=== PATIENT | female | born 1950 | race Caucasian/White ===

== ENCOUNTER 2018-12-23 16:43 | Emergency (ER) | payer MEDICARE ==
[2018-12-23 16:53] VITALS: BP 137/73
--- NOTE | 2018-12-23 16:54 | UC ---
Skin Complaint HPI - HPI Summary HPI Summary: 68 yo female presents with bug bite to right lower holman. She tells me that about 4-5 days ago she was working in the garden and thinks she may have been bitten by a bug or spider to her right lower leg. Since that time the area has developed some mild redness and yellow crusting. She is concerned for infection. Denies fever. - History of Current Complaint Chief Complaint: UCSkin Time Seen by Provider: 12/23/18 16:53 Stated Complaint: INSECT BITE Hx Obtained From: Patient Onset/Duration: Sudden Onset Onset Severity: Mild Current Severity: Mild Pain Intensity: 3 Pain Scale Used: 0-10 Numeric - Allergy/Home Medications Allergies/Adverse Reactions: Allergies Allergy/AdvReac Type Severity Reaction Status Date / Time No Known Allergies Allergy Verified 12/23/18 16:52 PMH/Surg Hx/FS Hx/Imm Hx Endocrine History: Hypothyroidism, Dyslipidemia - Surgical History Surgical History: Yes Surgery Procedure, Year, and Place: 1979-EXPLORATORY LAPAROTOMY. - CUT AT WORK AND GOT BLOOD POISONING LEFT ARM. TONSILLECTOMY AT AGE 4. RIGHT HIP REPLACEMENT - Family History Known Family History: Positive: Unknown - Social History Lives: With Family Alcohol Use: Rare Substance Use Type: None Smoking Status (MU): Former Smoker When Did the Patient Quit Smoking/Using Tobacco: QUIT OVER 10 YEARS AGO - Immunization History Most Recent Influenza Vaccination: FALL 2014 Most Recent Tetanus Shot: UNKNOWN Most Recent Pneumonia Vaccination: NOVEMBER 2015 Review of Systems All Other Systems Reviewed And Are Negative: Yes Constitutional: Positive: Negative Skin: Positive: Other - Wound right lower leg Respiratory: Positive: Negative Cardiovascular: Positive: Negative Neurovascular: Positive: Negative Neurological: Positive: Negative Psychological: Positive: Negative Physical Exam - Summary Physical Exam Summary: GENERAL: NAD. WDWN. No pain distress. SKIN: RIGHT LOWER HOLMAN: Two 2mm diameter superficial puncture wounds with yellow crusting and mild surrounding erythema. NTTP. No abscess or fluctuance appreciated. No streaking, active drainage, warmth, or bleeding. CHEST: No accessory muscle use. Breathing comfortably and in no distress. CV: Pulses intact. Cap refill <2seconds NEURO: Alert. PSYCH: Age appropriate behavior. Triage Information Reviewed: Yes Vital Signs: Initial Vital Signs Temp 97.2 F 12/23/18 16:47 Pulse 73 06/13/19 16:47 Resp 16 12/23/18 16:47 BP 137/73 12/23/18 16:47 Pulse Ox 98 12/23/18 16:47 Vital Signs Reviewed: Yes Course/Dx - Course Course Of Treatment: Suspect superficial bug bite with mild wound infection. Appears to be healing well on it's own. Will rx for bactroban cream and have pt apply a band-aid daily . - Diagnoses Provider Diagnosis: Bug bite Discharge - Sign-Out/Discharge Documenting (check all that apply): Patient Departure All imaging exams completed and their final reports reviewed: No Studies - Discharge Plan Condition: Stable Disposition: HOME Prescriptions: Mupirocin 2% CREAM* [Bactroban 2% CREAM*] 1 applic TOPICAL BID #1 tube Patient Education Materials: Insect Bite or Sting (ED) Referrals: Phil Juarez MD [Primary Care Provider] - Additional Instructions: If you develop a fever, shortness of breath, chest pain, new or worsening symptoms - please call your PCP or go to the ED immediately. Use the antibiotic cream twice a day and change the band-aid daily for 5 days - Billing Disposition and Condition Condition: STABLE Disposition: Home
== END 2018-12-23 17:10 | disposition home or self-care (01) ==
LOC: UCEAST 16:43
DX: S80.861A Insect bite (nonvenomous), right lower leg, initial encounter (principal); W57.XXXA Bitten or stung by nonvenomous insect and other nonvenomous arthropods, initial encounter; Y93.H2 Activity, gardening and landscaping; Y92.017 Garden or yard in single-family (private) house as the place of occurrence of the external cause; Y99.8 Other external cause status; E03.9 Hypothyroidism, unspecified; E78.5 Hyperlipidemia, unspecified; Z87.891 Personal history of nicotine dependence
CPT/HCPCS: 99212; G0463

== ENCOUNTER 2019-06-20 15:18 | Emergency (ER) | payer MEDICARE ==
[2019-06-20 15:27] VITALS: BP 126/69
--- NOTE | 2019-06-20 15:48 | UC ---
Ear Complaint HPI - HPI Summary HPI Summary: 69-year-old female comes in with chief complaint of left ear pain. Pain started about one week ago after she was outside shoveling snow in the cold and the wind. No fevers or chills no runny nose. She did take some over-the- counter pain medicines which did help somewhat symptoms. Denies any dental or mouth pain. No rash. Pain has spread slightly posterior and inferior to the left ear also. - History of Current Complaint Chief Complaint: UCEar Stated Complaint: EAR PAIN Time Seen by Provider: 06/20/19 15:30 Pain Intensity: 6 - Allergies/Home Medications Allergies/Adverse Reactions: Allergies Allergy/AdvReac Type Severity Reaction Status Date / Time bandaid adhesive Allergy Rash Uncoded 06/20/19 15:28 PMH/Surg Hx/FS Hx/Imm Hx Previously Healthy: Yes Endocrine History: Hypothyroidism - Surgical History Surgical History: Yes Surgery Procedure, Year, and Place: 1979-EXPLORATORY LAPAROTOMY. - CUT AT WORK AND GOT BLOOD POISONING LEFT ARM. TONSILLECTOMY AT AGE 4. RIGHT HIP REPLACEMENT - Family History Known Family History: Positive: Unknown - Social History Alcohol Use: Occasionally Substance Use Type: None Smoking Status (MU): Former Smoker When Did the Patient Quit Smoking/Using Tobacco: QUIT OVER 10 YEARS AGO - Immunization History Most Recent Influenza Vaccination: FALL 2014 Most Recent Tetanus Shot: UNKNOWN Most Recent Pneumonia Vaccination: NOVEMBER 2015 Review of Systems All Other Systems Reviewed And Are Negative: Yes Constitutional: Positive: Negative Skin: Positive: Negative Eyes: Positive: Negative ENT: Positive: Ear Ache Respiratory: Positive: Negative Cardiovascular: Positive: Negative Gastrointestinal: Positive: Negative Motor: Positive: Negative Neurovascular: Positive: Negative Musculoskeletal: Positive: Negative Neurological: Positive: Negative Psychological: Positive: Negative Is Patient Immunocompromised?: No Physical Exam Triage Information Reviewed: Yes Appearance: Well-Appearing, No Pain Distress, Well-Nourished Vital Signs: Initial Vital Signs Temp 97.2 F 06/20/19 15:23 Pulse 67 06/20/19 15:23 Resp 18 06/20/19 15:23 BP 126/69 06/20/19 15:23 Pulse Ox 98 06/20/19 15:23 Vital Signs Reviewed: Yes Eye Exam: Normal Eyes: Positive: Conjunctiva Clear ENT: Positive: Pharynx normal, Other - Both TMs are normal. There is some debris in the left ear canal. Left ear was irrigated by nursing. On reexamination some of the debris is gone some that remains. No oral lesions appreciated. Parotid and submandibular glands are nontender to palpation. No rash on the side of the face. Mild tenderness over the left mastoid and just inferior to the left ear. No tenderness to palpation at the TMJs.. Negative: Nasal drainage Neck: Positive: Supple Respiratory: Positive: Lungs clear, Normal breath sounds, No respiratory distress Cardiovascular: Positive: RRR Musculoskeletal: Positive: Strength Intact, ROM Intact Neurological: Positive: Alert Psychological: Positive: Age Appropriate Behavior Skin Exam: Normal Ear Complaint Course/Dx - Course Course Of Treatment: Will treat with ofloxacin for otitis externa. Also will treat with oral amoxicillin in case the infection is spread into the soft tissues. If the patient's not completely improved she'll follow-up with ENT. Get reevaluated sooner if worse or any questions or concerns. - Differential Dx/Diagnosis Provider Diagnosis: Left ear pain Discharge ED - Sign-Out/Discharge Documenting (check all that apply): Patient Departure All imaging exams completed and their final reports reviewed: No Studies - Discharge Plan Condition: Stable Disposition: HOME Prescriptions: Amoxicillin PO (*) [Amoxicillin 875 MG (*)] 875 mg PO BID #14 tab Ofloxacin 0.3% (Ear Drop)* [Floxin 0.3% OTIC.JAYNA (Ear Drop)] 5 drop LEFT EAR BID #1 btl Patient Education Materials: Otitis Externa (ED), Earache (ED) Referrals: Phil Juarez MD [Primary Care Provider] - Landon Mustafa MD [Medical Doctor] - Celso Rosas MD [Medical Doctor] - Additional Instructions: FOLLOW UP WITH ENT IF NOT COMPLETELY IMPROVED. GET REEVALUATED SOONER IF NOT IMPROVED OR WORSE OR ANY QUESTIONS OR CONCERNS. - Billing Disposition and Condition Condition: STABLE Disposition: Home
== END 2019-06-20 15:59 | disposition home or self-care (01) ==
LOC: UCEAST 15:18
DX: H92.02 Otalgia, left ear (principal); Z91.09 Other allergy status, other than to drugs and biological substances; Z87.891 Personal history of nicotine dependence
CPT/HCPCS: 99213; G0463